=== PATIENT | female | born 1960 | race Caucasian/White ===

== ENCOUNTER → 2019-06-26 | Outpatient (CLI) | payer OTHER ==
--- NOTE | 2019-06-26 18:40 | REP ---
Right wrist series: Four views. History: Pain the right wrist. History of previous fracture. No comparison radiographs. Findings: There is a transversely oriented radial styloid nonunited fracture with sclerotic margins. This extends the intra-articular margin. This is old or subacute in appearance. There is a dorsal triquetral chip fracture visible on the lateral radiograph which also has a well corticated appearance and may be old or subacute. There is osteoarthritic narrowing and sclerosis and spur formation in the navicular multangular articulation. There is mild spurring at the first metacarpal carpal joint and at the IP joint of the thumb. Impression: Nonunited nondisplaced but intra-articular radial styloid fracture, chronic in appearance. Dorsal triquetral chip fracture also appears well corticated and may be old. There is osteoarthritic changes. No acute fracture is seen. Electronically Signed by Norberto Morin MD 06/26/2019 06:32 P
== END ==
LOC: EDBD 17:15 → M WUC 17:15
PROVIDERS: ATTEND Physician Assistant
DX: M84.433A Pathological fracture, right radius, initial encounter for fracture (principal); M25.731 Osteophyte, right wrist

== ENCOUNTER → 2019-07-14 | Outpatient (CLI) | payer OTHER ==
--- NOTE | 2019-07-14 14:44 | REP ---
CT RIGHT WRIST: CT right wrist performed in the axial plane. Sagittal and coronal reconstruction images are performed. There is an intra-articular fracture of the distal radius laterally in the region of the radial styloid, which appears old. There is partial healing and bony bridging but there is a persistent lucency along portions of the fracture line indicating incomplete healing and either partial nonunion or partial fibrous union. There also appears to be an old avulsion fracture of the dorsal triquetrum. There is moderate narrowing with subchondral sclerosis and mild spurring at the joint between the scaphoid and trapezium as well as between the trapezium and trapezoid bones. There is moderate narrowing between the triquetrum and pisiform with mild subchondral sclerosis. Several scattered tiny subchondral cysts are seen in the carpal bones. There are also a couple in the distal end of the radius. Surrounding soft tissue structures are unremarkable. Electronically Signed by Robin Edward MD 07/14/2019 04:35 P
== END ==
LOC: M RAD 13:07
PROVIDERS: ATTEND Physician Assistant
DX: S52.514 Nondisplaced fracture of right radial styloid process (principal); M85.661 Other cyst of bone, right lower leg; Y92.9 Unspecified place or not applicable; X58.XXXD Exposure to other specified factors, subsequent encounter

== ENCOUNTER → 2021-06-09 | Outpatient (CLI) | payer OTHER ==
[~2021-06-09] MED LIST: CALC600T57 PO; DULO1CAP6 PO; FISH1000 PO; LISI20TA35 PO; METO1TAB7 PO; PANT40TA29 PO; POLY510P14 PO; VITMTA PO
== END ==
LOC: M RAD 15:04
PROVIDERS: ATTEND Internal Medicine Gastroenterology
DX: D48.1 Neoplasm of uncertain behavior of connective and other soft tissue (principal)

== ENCOUNTER → 2021-06-17 | Outpatient (REF) | payer OTHER | LOC: M LAB REF 15:01 | PROVIDERS: ATTEND Otolaryngology | DX: R22.1 Localized swelling, mass and lump, neck (principal) ==

== ENCOUNTER → 2021-08-02 | Outpatient (CLI) | payer OTHER ==
[~2021-08-02] MED LIST changes: -CALC600T57 PO; -DULO1CAP6 PO; -FISH1000 PO; -POLY510P14 PO; -VITMTA PO
== END ==
LOC: M LABSMTC 11:02
PROVIDERS: ATTEND Anesthesiology
DX: Z20.828 Contact with and (suspected) exposure to other viral communicable diseases (principal); Z11.59 Encounter for screening for other viral diseases

== ENCOUNTER 2021-08-07 11:46 | Day surgery (SDC) | payer OTHER ==
[~2021-08-07] VITALS: Ht 175.3 cm; Wt 86.2 kg
[~2021-08-07 11:46] MED LIST changes: +LIDOCAINE 2% 100MG/5ML SDV (FOR ANES.) As Ordered ONE; +NS 1,000 ML IV ONE; +fentaNYL 100 MCG/2 ML INJECTION (J3010) As Ordered ONE; +propofoL 500 MG/50 ML VIAL As Ordered ONE
[2021-08-07] MEDS ORDERED: ePHEDrine SULFATE 25 MG/5 ML(5MG/ML) SYRINGE As Ordered ONE (13:12)
--- NOTE | 2021-08-07 13:35 | ROOR ---
Patient Name: Dora Leger Procedure Date: 08/07/2021 12:44 PM Date of : 1960 Age: 61 Room: [facility] Gender: Female Note Status: Finalized Procedure: Upper GI endoscopy Indications: Epigastric abdominal pain, Nausea Providers: Chas Diaz MD Referring MD: Carol Ann Mccall NP Requesting Provider: Medicines: Monitored Anesthesia Care Complications: No immediate complications. Procedure: Pre-Anesthesia Assessment: - Prior to the procedure, a History and Physical was performed, and patient medications and allergies were reviewed. The patient is competent. The risks and benefits of the procedure and the sedation options and risks were discussed with the patient. All questions were answered and informed consent was obtained. Patient identification and proposed procedure were verified by the physician, the nurse and the anesthesiologist in the procedure room. Mental Status Examination: alert and oriented. Airway Examination: normal oropharyngeal airway and neck mobility. Respiratory Examination: clear to auscultation. CV Examination: normal. Prophylactic Antibiotics: The patient does not require prophylactic antibiotics. Prior Anticoagulants: The patient has taken no previous anticoagulant or antiplatelet agents. ASA Grade Assessment: II - A patient with mild systemic disease. After reviewing the risks and benefits, the patient was deemed in satisfactory condition to undergo the procedure. The anesthesia plan was to use monitored anesthesia care (MAC). Immediately prior to administration of medications, the patient was re-assessed for adequacy to receive sedatives. The heart rate, respiratory rate, oxygen saturations, blood pressure, adequacy of pulmonary ventilation, and response to care were monitored throughout the procedure. The physical status of the patient was re-assessed after the procedure. The Endoscope was introduced through the mouth, and advanced to the second part of duodenum. The upper GI endoscopy was accomplished without difficulty. The patient tolerated the procedure well. Findings: Two tongues of salmon-colored mucosa were present from 39 to 41 cm. No other visible abnormalities were present. The maximum longitudinal extent of these esophageal mucosal changes was 3 cm in length. Biopsies were taken with a cold forceps for histology. Verification of patient identification for the specimen was done by the physician and nurse using the patient's name, date and medical record number. Estimated blood loss was minimal. Scattered mild inflammation characterized by erythema and granularity was found in the gastric antrum. Biopsies were taken with a cold forceps for histology. Biopsies were taken with a cold forceps for Helicobacter pylori testing. The duodenal bulb and second portion of the duodenum were normal. Impression: - [place]-colored mucosa suspicious for short-segment Collier's esophagus. Biopsied. - Gastritis. Biopsied. - Normal duodenal bulb and second portion of the duodenum. Recommendation: - Patient has a contact number available for emergencies. The signs and symptoms of potential delayed complications were discussed with the patient. Return to normal activities tomorrow. Written discharge instructions were provided to the patient. - High fiber diet. - Continue present medications. - Await pathology results. - Follow an antireflux regimen. - Use Prilosec (omeprazole) 40 mg PO Daily - to be taken knot cutter on empty stomach for 3 months. - Repeat upper endoscopy in 3 years for surveillance based on pathology results. - Telephone GI clinic for pathology results in 2 weeks. - Return to GI clinic if persistent symptoms or new symptoms. - Return to primary care physician. Procedure Code(s): --- Professional --- 08141, Esophagogastroduodenoscopy, flexible, transoral; with biopsy, single or multiple Diagnosis Code(s): --- Professional --- K22.8, Other specified diseases of esophagus K29.70, Gastritis, unspecified, without bleeding R10.13, Epigastric pain R11.0, Nausea CPT copyright 2019 [employer]. All rights reserved. The codes documented in this report are preliminary and upon industrial relations officer review may be revised to meet current compliance requirements. Chas Diaz MD Chas Diaz MD 08/07/2021 1:34:49 PM Electronically signed by Chas Diaz MD Number of Addenda: 0 Note Initiated On: 08/07/2021 12:44 PM Estimated Blood Loss: Estimated blood loss was minimal.
--- NOTE | 2021-08-07 13:40 | ROOR ---
Patient Name: Dora Leger Procedure Date: 08/07/2021 12:45 PM Date of : 1960 Age: 61 Room: [facility] Gender: Female Note Status: Finalized Procedure: Colonoscopy Indications: Screening for colorectal malignant neoplasm Providers: Chas Diaz MD Referring MD: Carol Ann Mccall NP Requesting Provider: Medicines: Monitored Anesthesia Care Complications: No immediate complications. Procedure: Pre-Anesthesia Assessment: - Prior to the procedure, a History and Physical was performed, and patient medications and allergies were reviewed. The patient is competent. The risks and benefits of the procedure and the sedation options and risks were discussed with the patient. All questions were answered and informed consent was obtained. Patient identification and proposed procedure were verified by the physician, the nurse and the anesthesiologist in the procedure room. Mental Status Examination: alert and oriented. Airway Examination: normal oropharyngeal airway and neck mobility. Respiratory Examination: clear to auscultation. CV Examination: normal. Prophylactic Antibiotics: The patient does not require prophylactic antibiotics. Prior Anticoagulants: The patient has taken no previous anticoagulant or antiplatelet agents. ASA Grade Assessment: II - A patient with mild systemic disease. After reviewing the risks and benefits, the patient was deemed in satisfactory condition to undergo the procedure. The anesthesia plan was to use monitored anesthesia care (MAC). Immediately prior to administration of medications, the patient was re-assessed for adequacy to receive sedatives. The heart rate, respiratory rate, oxygen saturations, blood pressure, adequacy of pulmonary ventilation, and response to care were monitored throughout the procedure. The physical status of the patient was re-assessed after the procedure. The Colonoscope was introduced through the anus and advanced to the terminal ileum, with identification of the appendiceal orifice and IC valve. The colonoscopy was technically difficult and complex due to a tortuous colon. Successful completion of the procedure was aided by applying abdominal pressure. The patient tolerated the procedure well. The quality of the bowel preparation was good. The terminal ileum, ileocecal valve, appendiceal orifice, and rectum were photographed. Scope insertion time was 2 minutes. Scope withdrawal time was 10 minutes. The total duration of the procedure was 12 minutes. Findings: The perianal and digital rectal examinations were normal. The terminal ileum appeared normal. The colon (entire examined portion) was significantly tortuous. Advancing the scope required using manual pressure. Normal mucosa was found in the entire colon. Non-bleeding external and internal hemorrhoids were found during retroflexion. The hemorrhoids were small. Impression: - The examined portion of the ileum was normal. - Tortuous colon. - Normal mucosa in the entire examined colon. - Non-bleeding external and internal hemorrhoids. - No specimens collected. Recommendation: - Patient has a contact number available for emergencies. The signs and symptoms of potential delayed complications were discussed with the patient. Return to normal activities tomorrow. Written discharge instructions were provided to the patient. - High fiber diet. - Continue present medications. - Await pathology results. - Repeat colonoscopy in 10 years for screening purposes. - Return to primary care physician. Procedure Code(s): --- Professional --- 59123, Colonoscopy, flexible; diagnostic, including collection of specimen(s) by brushing or washing, when performed (separate procedure) Diagnosis Code(s): --- Professional --- Z12.11, Encounter for screening for malignant neoplasm of colon K64.8, Other hemorrhoids Q43.8, Other specified congenital malformations of intestine CPT copyright 2019 [employer]. All rights reserved. The codes documented in this report are preliminary and upon estimator printing review may be revised to meet current compliance requirements. Chas Diaz MD Chas Diaz MD 08/07/2021 1:39:35 PM Electronically signed by Chas Diaz MD Number of Addenda: 0 Note Initiated On: 08/07/2021 12:45 PM Estimated Blood Loss: Estimated blood loss was minimal.
[2021-08-07 13:59] VITALS: BP 130/76
[2021-08-11] MEDS ORDERED: DULO1CAP6 PO (14:49)
[2021-08-11] MEDS ORDERED: FISH1000 PO (14:49)
[2021-08-11] MEDS ORDERED: VITMTA PO (14:49)
[2021-08-11] MEDS ORDERED: POLY510P14 PO (14:49)
[2021-08-11] MEDS ORDERED: CALC600T57 PO (14:49)
== END 2021-08-07 14:00 | disposition home or self-care (01) ==
LOC: M OPP 11:46
PROVIDERS: ATTEND Internal Medicine Gastroenterology
DX: Z12.11 Encounter for screening for malignant neoplasm of colon (principal); Q43.8 Other specified congenital malformations of intestine; K64.8 Other hemorrhoids; K22.8 Other specified diseases of esophagus; K29.70 Gastritis, unspecified, without bleeding; R10.13 Epigastric pain; R11.0 Nausea; Z79.899 Other long term (current) drug therapy
CPT/HCPCS: 43239; 45378; 88305; J3010

== ENCOUNTER → 2021-08-15 | Outpatient (CLI) | payer OTHER ==
[~2021-08-15] MED LIST changes: +CALC600T57 PO; +DULO1CAP6 PO; +FISH1000 PO; -LIDOCAINE 2% 100MG/5ML SDV (FOR ANES.) As Ordered ONE; -NS 1,000 ML IV ONE; +POLY510P14 PO; +VITMTA PO; -fentaNYL 100 MCG/2 ML INJECTION (J3010) As Ordered ONE; -propofoL 500 MG/50 ML VIAL As Ordered ONE
--- NOTE | 2021-08-15 14:54 | REPVR ---
PROCEDURE INFORMATION: Exam: CT Neck Without Contrast Exam date and time: 08/15/2021 2:12 PM Age: 61 years old Clinical indication: Mass, lump, or swelling in neck; Right; Additional info: Swelling/mass/lump in neck TECHNIQUE: Imaging protocol: Computed tomography images of the neck without contrast. Radiation optimization: All CT scans at this facility use at least one of these dose optimization techniques: automated exposure control; mA and/or kV adjustment per patient size (includes targeted exams where dose is matched to clinical indication); or iterative reconstruction. COMPARISON: Thyroid, ST head+neck US 06/09/2021 3:14 PM FINDINGS: Nasopharynx: Unremarkable. Dental: Artifact from patient's dental hardware. No significant dental disease identified. Oropharynx: Unremarkable. No significant tonsillar enlargement. Hypopharynx: Unremarkable. Larynx: Unremarkable. Normal epiglottis. Retropharyngeal space: Unremarkable. Submandibular/Parotid glands: Normal. Glands are normal in size. Thyroid: Diminutive thyroid. Lymph nodes: No confluent lymphadenopathy. Trachea: Visualized trachea is unremarkable. Lungs: The included lung apices are clear. Bones/joints: Age-appropriate degenerative changes in the spine without acute fracture. Soft tissues: Just caudad to the metallic marker in the right neck is a low-density mass, corresponding to the ultrasound findings, which is located along the anterolateral aspect of the sternocleidomastoid muscle and just deep to the fascial air. This measures 16 x 11 x 18 mm. Other findings: Limited noncontrast exam. IMPRESSION: 1. No confluent lymphadenopathy. 2. Low-density mass corresponding to the metallic marker in the right neck. This is nonspecific. One might consider ultrasound-guided tissue sampling. Electronically signed by: Richi Bonilla On 08/15/2021 14:53:41 PM
== END ==
LOC: M RAD 14:02
PROVIDERS: ATTEND Otolaryngology
DX: R22.1 Localized swelling, mass and lump, neck (principal)

== ENCOUNTER → 2021-08-16 | Outpatient (CLI) | payer OTHER | LOC: M LABSMTC 11:04 | PROVIDERS: ATTEND Anesthesiology | DX: Z01.812 Encounter for preprocedural laboratory examination (principal); Z11.52 Encounter for screening for COVID-19 ==

== ENCOUNTER 2021-08-21 08:51 | Day surgery (SDC) | payer OTHER ==
[~2021-08-21] VITALS: Ht 175.3 cm; Wt 83.9 kg
[~2021-08-21 08:51] MED LIST changes: +LIDOCAINE 1% MDV 20ML VIAL SQ PRN; +LR 1,000 ML IV ONE
--- OUTSIDE RECORDS SUMMARY | 2021-08-21 08:56 | CCD | Continuity of Care Document ---
Author Author Dora BERRISO RPA Organization Unknown Address [address] [facility], [address] [place] [address] Phone [phone] Care Team Providers Care Manager Web Application Name Role Phone Carol Ann Mccall AUTM [phone] Augie Angulo MD AUTM Pauline Berrios AUTM Problems Active Problems Provider Date Essential hypertension PHOEBE Novoa Onset: Social History Type Date Description Comments Sex Unknown ETOH Use 1-2 A Week Tobacco Use Start: Unknown Non Smoker Allergies, Adverse Reactions, Alerts Description No Known Drug Allergies Medications Active Medications SIG Qnty Indications Ordering Provide r Date Pantoprazole Sodium 40mg Tablets D R take 1 tablet by mouth daily. 30tabs R10.13 Boom Villalba MD 05/27/20 21 Miralax 17GM/Scoop Powder take 17 grams by mouth once daily. 510units K59.00 Boom Villalba MD 05/27/2021 Suprep Bowel Prep Kit 17.5-3.13-1.6GM/177ML Solution take per doctor's bowel prep instructions. 354ml Z12.1 1 Boom Villalba MD 05/27/[address] take 4 tabs by mouth prior to procedure per instructions. 4tabs Z12.11 Boom Villalba MD 05/27/2021 Metoprolol Succinate ER 50mg Tablets ER 24HR Daily Unknown Duloxetine HCL 60mg Caps DR Part 1 by mouth every day Unknown Lisinopril-Hydrochlorothiazide 20-12.5mg Tablets 1 by mouth every day Unknown 000 [place] 3 2150MG 2 Daily Unknown Calcium 600+D [id number] Table ts 2 daily Unknown Multivitamin Tablets 1 by mouth every day Unknown Diclofenac Sodium 75mg Tablets DR bray Unknown Milk Of Magnesia 1200mg/15ML Suspe nsion 1 big sip daily Unknown Immunizations Description No Information Available Vital Signs Date Vital Result Comment 06/17/2021 11:31am Height 69 inches 5'9" Weight 190.00 lb BMI (Body Mass Index) 28.1 kg/m2 [place] Body Weight 145 lb Weight 86.184 kg BSA (Body Surface Area) 2.02 m2 05/27/2021 10:33am BP Systolic 124 mmHg BP Diastolic 82 mmHg Height 69 inches 5'9" Weight 199.00 lb BMI (Body Mass Index) 29.4 kg/m2 [place] Body Weight 145 lb Weight 90.266 kg BSA (Body Surface Area) 2.06 m2 Results Test Acquired Date Facility Test Result H/L Range Note Laboratory test finding 06/17/2021 [facility] Main [facility] [address] [place] [id number] [phone] Non Order Planner/Cytology Req For Servi <pending> Procedures Date Code Description Status 05/27/2021 12801 Office/Outpatient New Moderate M DM 45-59 Minutes Completed Medical Devices Description No Information Available Encounters Type Date Location Provider Dx Diagnosis Office Visit 05/27/2021 10:15a [facility] Pra [facility]ice Paulinekortney Berrios RPA-C R10.13 Epigastric pain R11.0 Nausea K59.00 Constipation, unspecified 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 Z12.11 Encounter for screening for malignant neoplasm of colon Assessments Date Code Description Provider 06/17/2021 R22.1 Localized swelling, mass and lum p, neck Romeo Duke MD 05/27/2021 R10.13 Epigastric pain Pauline Landon schaefer RPA-C 05/27/2021 R11.0 Nausea MALI BoschC 05/27/2021 K59.00 Constipation, unspecified Zeina DiazSAMUEL chapa-C 05/27/2021 D48.1 Neoplasm of uncertai n behavior of connective and other soft tissue Paulinekortney KelleySAMUEL schaefer-C 05/27/2021 Z12.11 Encounter for screening for bentley gnant neoplasm of colon Pauline A SAMUEL Berrios-C Plan of Treatment No Information Available Functional Status Description No Information Available Mental Status Description No Information Available Referrals Refer to Dr Reason for Referral Status Appt Date Kev, Augie Aguila MD 61 y/o female with palpable nodule on right side of neck. Ultrasound showed two nodules and biposy was recommended. Please evaluate and treat BOBBY. Thank you. Scheduled 06/17/[address] [place] [address] [phone] Chas Diaz M.D. EPIGASTRIC PAIN Scheduled [facility] [address] [id number] [phone]
--- OUTSIDE RECORDS SUMMARY | 2021-08-21 08:56 | CCD | Continuity of Care Document ---
Author Author Dora DUKE MD Organization Unknown Address [address] [facility] [address] [place] [address] Phone [phone] Care Team Providers Care Senior Net Developer Architect Name Role Phone Carol Ann Mccall AUTM [phone] Augie Angulo MD AUTM Pauline Carrasquillo AUTM Problems Active Problems Provider Date Essential [...] daily. 30tabs R10.13 Boom Villalba MD 05/27/20 Miralax 17GM/Scoop Powder take 17 grams by [...] Tablets 1 by mouth every day Unknown /0 000 Pease 3 2150MG 2 Daily Unknown Calcium 600+D [id number]-[id number] Table ts 2 daily Unknown Multivitamin Tablets 1 by mouth every day Unknown Diclofenac Sodium 75mg Tablets DR bray Unknown Milk Of Magnesia 1200mg/15ML Suspe nsion 1 big sip daily Unknown Immunizations Description No Information Available Vital Signs Date Vital Result Comment 06/17/2021 11:31am Height 69 inches 5'9" Weight 190.00 lb BMI (Body Mass Index) 28.1 kg/m2 [place] Body Weight 145 lb Weight 86.184 kg BSA (Body Surface Area) 2.02 m2 05/27/2021 10:33am BP Systolic 124 mmHg BP Diastolic 82 mmHg Height 69 inches 5'9" Weight 199.00 lb BMI (Body Mass Index) 29.4 kg/m2 [place] Body Weight 145 lb Weight 90.266 kg BSA (Body Surface Area) 2.06 m2 Results Test Acquired Date Facility Test Result H/L Range Note Laboratory test finding 06/17/2021 [facility] Main Lab [address] [place] [address] [phone] Non Vp Director Of Finance/Cytology Req For Servi <pending> Procedures Date Code Description Status 05/27/2021 62667 Office/Outpatient New Moderate M DM 45-59 Minutes Completed Medical Devices Description No Information Available Encounters Type Date Location Provider Dx Diagnosis Office Visit 05/27/2021 10:15a [facility] Gastroenterology Pra ctice Pauline A SAMUEL Carrasquillo-C R10.13 Epigastric pain R11.0 Nausea K59.00 Constipation, unspecified 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 Z12.11 Encounter for screening for malignant neoplasm of colon Assessments Date Code Description Provider 06/17/2021 R22.1 Localized swelling, mass and lum p, neck Romeo Duke MD 05/27/2021 R10.13 Epigastric pain Pauline A Warren schaefer RPA-C 05/27/2021 R11.0 Nausea Pauline A Warren schaefer RPA-C 05/27/2021 K59.00 Constipation, unspecified Meliss a A CharleMALI schaeferC 05/27/2021 D48.1 Neoplasm of uncertai n behavior of connective and other soft tissue Pauline KelleyMALI schaeferC 05/27/2021 Z12.11 Encounter for screening for bentley gnant neoplasm of colon Pauline A PHOEBE Carrasquillo Plan of Treatment No Information Available Functional Status Description No Information Available Mental Status Description No Information Available Referrals Refer to Dr Reason for Referral Status Appt Date Kev, Augie Aguila MD 61 y/o female with palpable nodule on right side of neck. Ultrasound showed two nodules and biposy was recommended. Please evaluate and treat BOBBY. Thank you. Scheduled 06/17/[address] [id number] [phone] Chas Diaz M.D. EPIGASTRIC PAIN Scheduled [facility] [address] [facility] [address] [place], [place] [id number] [phone]
--- OUTSIDE RECORDS SUMMARY | 2021-08-21 08:56 | CCD | Continuity of Care Document ---
Author Dora Villeda Organization Unknown Address [address] [facility], [address] [place] [address] Phone [phone] Care Team Providers Care City Plant Supervisor Name Role Phone Carol Ann Mccall AUTM [phone] Augie Angulo MD AUTM Pauline Carrasquillo AUTM Problems Active Problems Provider Date Essential hypertension PHOEBE Novoa Onset: Social History Type Date Description Comments Sex Unknown ETOH Use 1-2 A Week Tobacco Use Start: Unknown Non Smoker Allergies, Adverse Reactions, Alerts Description No Known Drug Allergies Medications Active Medications SIG Qnty Indications Ordering Provide r Date Miralax 17GM/Scoop Powder use as instructed by doctor for bowel prep 510gm Boom Villalba MD 07/10/2021 Pantoprazole Sodium 40mg Tablets D R take 1 tablet by mouth daily. 30tabs R10.13 Boom Villalba MD 05/27/20 21 Miralax 17GM/Scoop Powder take 17 grams by mouth once daily. 510units K59.00 Boom Villalba MD 05/27/[address] take 4 tabs by mouth prior to procedure per instructions. 4tabs Z12.11 Boom Villalba MD 05/27/2021 Metoprolol Succinate ER 50mg Tablets ER 24HR Daily Unknown Duloxetine HCL 60mg Caps DR Part 1 by mouth every day Unknown Lisinopril-Hydrochlorothiazide 20-12.5mg Tablets 1 by mouth every day Unknown 000 [place] 3 2150MG 2 Daily Unknown Calcium 600+D 772-846qy-Lvsg Table ts 2 daily Unknown Multivitamin Tablets 1 by mouth every day Unknown Diclofenac Sodium 75mg Tablets DR bray Unknown Milk Of Magnesia 1200mg/15ML Suspe nsion 1 big sip daily Unknown History Medications Suprep Bowel Prep Kit 17.5-3.13-1.6GM/177ML Solution take per doctor's bowel prep instructions. 354ml Z12.1 1 Boom Villalba MD 05/27/2021 - 07/10/2021 Immunizations Description No Information Available Vital Signs Date Vital Result Comment 07/21/2021 10:18am Height 69 inches 5'9" Weight 194.00 lb BMI (Body Mass Index) 28.6 kg/m2 [place] Body Weight 145 lb Weight 87.998 kg BSA (Body Surface Area) 2.04 m2 06/17/2021 11:31am Height 69 inches 5'9" Weight 190.00 lb BMI (Body Mass Index) 28.1 kg/m2 [place] Body Weight 145 lb Weight 86.184 kg BSA (Body Surface Area) 2.02 m2 Results Test Acquired Date Facility Test Result H/L Range Note Laboratory test finding 08/07/2021 [facility] [address] [place], [place] [id number] [phone] Pathology Request For Service (SEE NOTE) 1 Laboratory test finding 06/17/2021 [facility] [address] [place], [place] [address] [phone] Non Building Maintenance Repairer/Cytology Req For Servi (SEE NOTE) 2 1 FINAL DIAGNOSIS A - Gastric biopsy: Gastric mucosa with mild reactive changes. No significant inflammatory activity or evidence for H. pylori is noted. B - Lower esophageal biopsy: Squamocolumnar junction mucosa with mild acute and chronic inflammation. No intestinal metaplasia is identified. 08/11/2021 - 1107 CLINICAL DIAGNOSIS Epigastric pain, nausea, screening, gastritis and esophagitis 08/08/2021 - 1249 GROSS DIAGNOSIS A - Received in formalin labeled "gastric biopsy" is a 0.2 x 0.2 x 0.1 cm. aggregate of two mucosal fragments. All in one. B - Received in formalin labeled "lower esophageal biopsy" is a 0.3 x 0.2 x 0.2 cm. portion of mucosa. All in one. - 08/08/2021 - 1249 Signed Collins Hwang MD 08/11/2021 1218 2 SPECIMEN: FNA Rig ht neck mass Slides and Cytolyt (clear) received SPECIMEN ADEQUACY: Satisfactory for evaluation CATEGORIZATION: No Malignancy identified DESCRIPTIONS: Specimen consists mainly of scattered neutrophils and lymphocytes. COMMENTS: 06/18/2021 - 0842 Signed ALEIDA CRUZ(ASCP) 06/18/2021 0728 (Prelim) Signed HUGO MONCADA MD 06/18/2021 0842 Procedures Date Code Description Status 08/07/2021 28795 Colonoscopy Flexible Proximal To Splenic Flexure Diagnostic W/Or Completed 08/07/2021 00109 Endoscopy Upper GI Biopsy Comple jose e 07/21/2021 27501 Office/Outpatient Established SF MDM 10-19 Min Completed 06/17/2021 17861 Office/Outpatient New Low MDM 30 -44 Minutes Completed 06/17/2021 02134 Laryngoscopy Flexible Fiberoptic Diagnostic Completed 06/17/2021 43877 Fine Needle Aspiration Biopsy In lcd Ultrasound Guidance Completed 05/27/2021 01338 Office/Outpatient New Moderate M DM 45-59 Minutes Completed Medical Devices Description No Information Available Encounters Type Date Location Provider Dx Diagnosis Office Visit 07/21/2021 10:30a [facility] Romeo Duke MD R22.1 Localized swelling, mass and lump, neck Office Visit 06/17/2021 11:30a [facility] Romeo Duke MD R22.1 Localized swelling, mass and lump, neck Office Visit 05/27/2021 10:15a [facility] [place] Pauline Carrasquillo, RPA-C R10.13 Epigastric pain R11.0 Nausea K59.00 Constipation, unspecified 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 08/07/2021 K64.8 Other hemorrhoids Chas rojas M.D. 08/07/2021 R10.13 Epigastric pain Chas Arizmendi ala, M.D. 08/07/2021 R11.0 Nausea Chas Arizmendi ala, M.D. 08/07/2021 K22.8 Other specified diseases of esop hagus Chas Diaz M.D. 08/07/2021 K29.70 Gastritis, unspecified, without bleeding Chas Diaz M.D. 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 MALI NovoaC 05/27/2021 Z12.11 Encounter for screening for bentley gnant neoplasm of colon PHOEBE Novoa Plan of Treatment Future Appointment(s):* 08/20/2021 3:15 pm - PHOEBE Novoa at [facility] * 08/21/2021 11:45 am - Romeo Duke MD at [facility] 07/21/2021 - Romeo Duke MD* R22.1 Localized swelling, mass and lump, neck* New Xrays:* CT Neck Soft Tissue W/O Contrast, Ordered: 07/21/21 Functional Status Description No Information Available Mental Status Description No Information Available Referrals Refer to Dr Reason for Referral Status Appt Date Augie Angluo MD 61 y/o female with palpable nodule on right side of neck. Ultrasound showed two nodules and biposy was recommended. Please evaluate and treat BOBBY. Thank you. Closed 06/17/[address] [place] [address] [phone] Chas Diaz M.D. EPIGASTRIC PAIN Scheduled [facility] [address], [address] [place] [address] [phone]
--- OUTSIDE RECORDS SUMMARY | 2021-08-21 08:56 | CCD | Continuity of Care Document ---
Author Author Dora DUKE MD Organization Unknown Address [address] [facility] [address] [place] [address] Phone [phone] Care Team Providers Care Auto Haulaway Driver Name Role Phone Carol Ann Mccall AUTM [phone] Augie Angulo MD AUTM Pauline Carrasquillo AUTM [phone] Problems Active Problems Provider Date Essential hypertension [...] by mouth every day Unknown /0 000 [place] 3 2150MG 2 Daily Unknown Calcium 600+D 348-268xs-Ykaw Table ts 2 daily Unknown Multivitamin Tablets 1 by mouth every day Unknown Diclofenac Sodium 75mg Tablets DR bray Unknown Milk Of Magnesia 1200mg/15ML Suspe nsion 1 big sip daily Unknown Immunizations Description No Information Available Vital Signs Date Vital Result Comment 06/17/2021 11:31am Height 69 inches 5'9" Weight 190.00 lb BMI (Body Mass Index) 28.1 kg/m2 [place] Body Weight 145 lb Weight 86.184 kg BSA (Body Surface Area) 2.02 m2 05/27/2021 10:33am BP Systolic 124 mmHg BP Diastolic 82 mmHg Height 69 inches 5'9" Weight 199.00 lb BMI (Body Mass Index) 29.4 kg/m2 [place] Body Weight 145 lb Weight 90.266 kg BSA (Body Surface Area) 2.06 m2 Results Test Acquired Date Facility Test Result H/L Range Note Laboratory test finding 06/17/2021 [facility] Main Lab [address] [place] [address] [phone] Non Associate Embalmer/Funeral Director/Cytology Req For Servi <pending> Procedures Date Code Description Status 05/27/2021 88370 Office/Outpatient New Moderate M DM 45-59 Minutes Completed Medical Devices Description No Information Available Encounters Type Date Location Provider Dx Diagnosis Office Visit 05/27/2021 10:15a [facility] Pra [place]ice Pauline A SAMUEL Carrasquillo-C [...] treat BOBBY. Thank you. Scheduled 06/17/[address] [id number] [phone] Chas Diaz M.D. EPIGASTRIC PAIN Scheduled [facility] [address] [facility] [address] [place], [place] [id number] [phone]
--- OUTSIDE RECORDS SUMMARY | 2021-08-21 08:56 | CCD | Continuity of Care Document ---
Author Author Dora BERRIOS RPA Organization Unknown Address [address] [place] [address], [address] [place] [address] Phone [phone] Care Team Providers Care Dean Of Education Name Role Phone CalCarol AnnM [phone] Problems Active Problems Provider Date Essential hypertension [...] 354ml Z12.1 1 Boom Villalba MD 05/27/2021 Metoprolol Succinate ER 50mg Tablets ER 24HR Daily Unknown Duloxetine HCL 60mg Caps DR [address] 1 by mouth every day Unknown Lisinopril-Hydrochlorothiazide 20-12.5mg Tablets 1 by mouth every day Unknown 000 [place] 3 2150MG 2 Daily Unknown Calcium 600+D 966-086tv-Ednp Table ts 2 daily Unknown Multivitamin Tablets 1 by mouth every day Unknown Diclofenac Sodium 75mg Tablets prn Unknown Milk Of Magnesia 1200mg/15ML Suspe nsion 1 big sip daily Unknown Immunizations Description No Information Available Vital Signs Date Vital Result Comment 05/27/2021 10:33am BP Systolic 124 mmHg BP Diastolic 82 mmHg Height 69 inches 5'9" Weight 199.00 lb BMI (Body Mass Index) 29.4 kg/m2 [place] Body Weight 145 lb Weight 90.266 kg BSA (Body Surface Area) 2.06 m2 Results Description No Information Available Procedures Description No Information Available Medical Devices Description No Information Available Encounters Description No Information Available Assessments Date Code Description Provider 05/27/2021 R10.13 Epigastric pain Pauline colemanPHOEBE chapa 05/27/2021 R11.0 Nausea Pauline colemanPHOEBE chapa 05/27/2021 K59.00 Constipation, unspecified Meliss gillian KelleyPHOEBE schaefer 05/27/2021 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 Reviewed risks and benefits of the procedures, as well as other options, with the patient. Prep for this procedure was discussed with patient, including risks and side effects associated with the prep. Patient verbalized understanding of all of the above and is in agreement to proceed. Patient will seek medical attention for any acute changes. Will monitor. Will need MOM for pre-prep * Follow up:* 2 weeks after procedures, sooner if needed. Functional Status Description No Information Available Mental Status Description No Information Available Referrals Refer to Reason for Referral Status Appt Date Chas Diaz M.D. EPIGASTRIC PAIN Scheduled [facility] [address] [facility], [address] [place] [address] [phone]
--- OUTSIDE RECORDS SUMMARY | 2021-08-21 08:56 | CCD | Continuity of Care Document ---
Author Author Dora DUKE MD Organization Unknown Address [address] [facility] [address] [place] [address] Phone [phone] Care Team Providers Care Liner Man Name Role Phone Carol Ann Mccall AUTM [phone] Augie Angulo MD AUTM [phone] Pauline Carrasquillo AUTM Problems Active Problems Provider [...] by mouth every day Unknown /0 000 [place] 3 2150MG 2 Daily Unknown Calcium 600+D 719-634is-Ntju Table ts 2 daily Unknown Multivitamin Tablets [...] lb BMI (Body Mass Index) 28.6 kg/m2 [place] Body Weight 145 lb Weight 87.998 kg BSA (Body Surface Area) 2.04 m2 06/17/2021 11:31am Height 69 inches 5'9" Weight 190.00 lb BMI (Body Mass Index) 28.1 kg/m2 [place] Body Weight 145 lb Weight 86.184 kg BSA (Body Surface Area) 2.02 m2 Results Test Acquired Date Facility Test Result H/L Range Note Laboratory test finding 06/17/2021 [facility] Main Lab [address] [place], [place] [address] [phone] Non Professor Of Family Medicine/Cytology Req For Servi (SEE NOTE) 1 1 SPECIMEN: FNA Rig ht neck mass Slides and Cytolyt (clear) received SPECIMEN ADEQUACY: Satisfactory for evaluation CATEGORIZATION: No Malignancy identified DESCRIPTIONS: Specimen consists mainly of scattered neutrophils and lymphocytes. COMMENTS: 06/18/2021 - 841 Signed ALEIDA CRUZ(ASCP) 06/18/2021 0728 (Prelim) Signed HUGO MONCADA MD 06/18/2021 0842 Procedures Date Code Description Status 06/17/2021 68776 Office/Outpatient New Low MDM 30 -44 Minutes Completed 06/17/2021 59363 Laryngoscopy Flexible Fiberoptic Diagnostic Completed 06/17/2021 28755 Fine Needle Aspiration Biopsy In lcd Ultrasound Guidance Completed 05/27/2021 74543 Office/Outpatient New Moderate M DM 45-59 Minutes Completed Medical Devices Description No Information Available Encounters Type Date Location Provider Dx Diagnosis Office Visit 06/17/2021 11:30a [facility] Romeo Duke MD R22.1 Localized swelling, mass and lump, neck Office Visit 05/27/2021 10:15a [facility] ctice Pauline Navarrete Foreign, SAMUEL-C R10.13 Epigastric pain R11.0 Nausea K59.00 Constipation, unspecified 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 Z12.11 Encounter for screening for malignant neoplasm of colon Assessments Date Code Description Provider 06/17/2021 R22.1 Localized swelling, mass and lum p, neck Romeo Duke MD 05/27/2021 R10.13 Epigastric pain Pauline Kelley silvano, SAMUEL-C 05/27/2021 R11.0 Nausea Pauline A Warren schaefer, SAMUEL-C 05/27/2021 K59.00 Constipation, unspecified Meliss gillian Navarrete MALI CarrasquilloC 05/27/2021 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 at [facility] Functional Status Description No Information Available Mental Status Description No Information Available Referrals Refer to Dr Reason for Referral Status Appt Date Augie Angulo MD 61 y/o female with palpable nodule on right side of neck. Ultrasound showed two nodules and biposy was recommended. Please evaluate and treat BOBBY. Thank you. Closed 06/17/[address] [place] [address] [phone] Chas Diaz M.D. EPIGASTRIC PAIN Scheduled [facility] [address] [place] [address] [address] [place] [address] [phone]
--- OUTSIDE RECORDS SUMMARY | 2021-08-21 08:56 | CCD | Continuity of Care Document ---
Author Author Dora DUKE MD Organization Unknown Address [address] [facility] [address] [place] [address] Phone [phone] Care Team Providers Care Correctional Treatment Specialist Name Role Phone Carol Ann Mccall AUTM [phone] Augie Angulo MD AUTM [phone] Pauline Carrasquillo AUTM Problems Active Problems [...] by mouth every day Unknown /0 000 [place] 3 2150MG 2 Daily Unknown Calcium 600+D 884-604gk-Ydqo Table ts 2 daily Unknown Multivitamin Tablets [...] lb BMI (Body Mass Index) 28.6 kg/m2 [place] Body Weight 145 lb Weight 87.998 kg BSA (Body Surface Area) 2.04 m2 06/17/2021 11:31am Height 69 inches 5'9" Weight 190.00 lb BMI (Body Mass Index) 28.1 kg/m2 [place] Body Weight 145 lb Weight 86.184 kg BSA (Body Surface Area) 2.02 m2 Results Test Acquired Date Facility Test Result H/L Range Note Laboratory test finding 06/17/2021 [facility] Main Lab [address] [place], [place] [address] [phone] Non Events Specialist/Cytology Req For Servi (SEE NOTE) 1 1 SPECIMEN: FNA Rig ht neck mass Slides and Cytolyt (clear) received SPECIMEN ADEQUACY: Satisfactory for evaluation CATEGORIZATION: No Malignancy identified DESCRIPTIONS: Specimen consists mainly of scattered neutrophils and lymphocytes. COMMENTS: 06/18/2021 - 0842 Signed ALEIDA CRUZ(ASCP) 06/18/2021 0728 (Prelim) Signed HUGO MONCADA MD 06/18/2021 0842 Procedures Date Code Description Status 07/21/2021 03176 Office/Outpatient Established SF MDM 10-19 Min Completed 06/17/2021 52656 Office/Outpatient New Low MDM 30 -44 Minutes Completed 06/17/2021 17908 Laryngoscopy Flexible Fiberoptic Diagnostic Completed 06/17/2021 42719 Fine Needle Aspiration Biopsy In lcd Ultrasound Guidance Completed 05/27/2021 45454 Office/Outpatient New Moderate M DM 45-59 Minutes Completed Medical Devices Description No Information Available Encounters Type Date Location Provider Dx Diagnosis Office Visit 07/21/2021 10:30a [facility] Romeo Duke MD R22.1 Localized swelling, mass and lump, neck Office Visit 06/17/2021 11:30a [facility] Romeo Duke MD R22.1 Localized swelling, mass and lump, neck Office Visit 05/27/2021 10:15a [facility] Pra ctice Pauline Navarrete Foreign, RPA-C R10.13 Epigastric pain R11.0 Nausea K59.00 Constipation, unspecified 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 Z12.11 Encounter for screening for malignant neoplasm of colon Assessments Date Code Description Provider 07/21/2021 R22.1 Localized swelling, mass and lum p, neck Romeo Duke MD 06/17/2021 R22.1 Localized swelling, mass and lum p, neck Romeo Duke MD 05/27/2021 R10.13 Epigastric pain Pauline Navarrete Warren schaefer, RPA-C 05/27/2021 R11.0 Nausea Pauline A Warern silvano, RPA-C 05/27/2021 K59.00 Constipation, unspecified Meliss a Landon Foreign, RPA-C 05/27/2021 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 at [facility] 07/21/2021 - Romeo Duke MD* R22.1 Localized swelling, mass and lump, neck* New Xrays:* CT Neck Soft Tissue W/O Contrast, Ordered: 07/21/21 Functional Status Description No Information Available Mental Status Description No Information Available Referrals Refer to Reason for Referral Status Appt Date Augie Angulo MD 61 y/o female with palpable nodule on right side of neck. Ultrasound showed two nodules and biposy was recommended. Please evaluate and treat BOBBY. Thank you. Closed 06/17/[address] [place] [address] [phone] Chas Diaz M.D. EPIGASTRIC PAIN Scheduled [facility] [address] [facility] [address] [place] [address] [phone]
--- OUTSIDE RECORDS SUMMARY | 2021-08-21 08:56 | CCD | Continuity of Care Document ---
Author Author Dora DUKE MD Organization Unknown Address [address] [facility] [address] [place] [address] Phone [phone] Care Team Providers Care Valve Fitter Name Role Phone Carol Ann Mccall AUTM [phone] Augie Angulo MD AUTM [phone] Pauline Carrasquillo AUTM Problems Active Problems Provider [...] by mouth every day Unknown /0 000 [place] 3 2150MG 2 Daily Unknown Calcium 600+D 270-872gq-Yehy Table ts 2 daily Unknown Multivitamin Tablets 1 by mouth every day Unknown Diclofenac Sodium 75mg Tablets DR bray Unknown Milk Of Magnesia 1200mg/15ML Suspe nsion 1 big sip daily Unknown Immunizations Description No Information Available Vital Signs Date Vital Result Comment 06/17/2021 11:31am Height 69 inches 5'9" Weight 190.00 lb BMI (Body Mass Index) 28.1 kg/m2 [place] Body Weight 145 lb Weight 86.184 kg BSA (Body Surface Area) 2.02 m2 05/27/2021 10:33am BP Systolic 124 mmHg BP Diastolic 82 mmHg Height 69 inches 5'9" Weight 199.00 lb BMI (Body Mass Index) 29.4 kg/m2 [place] Body Weight 145 lb Weight 90.266 kg BSA (Body Surface Area) 2.06 m2 Results Test Acquired Date Facility Test Result H/L Range Note Laboratory test finding 06/17/2021 [facility] Main Lab [address] [place] [address] [phone] Non Operations Agent/Cytology Req For Servi <pending> Procedures Date Code Description Status 05/27/2021 40333 Office/Outpatient New Moderate M DM 45-59 Minutes Completed Medical Devices Description No Information Available Encounters Type Date Location Provider Dx Diagnosis Office Visit 05/27/2021 10:15a [facility] Gastroenterology Pra ctice Pauline A SAMUEL Carrasquillo-C [...] treat BOBBY. Thank you. Scheduled 06/17/[address] [id number] [phone] Chas Diaz M.D. EPIGASTRIC PAIN Scheduled [facility] [address] [facility] [address] [place], [place] [address] [phone]
--- OUTSIDE RECORDS SUMMARY | 2021-08-21 08:56 | CCD | Continuity of Care Document ---
Author Author Dora DUKE MD Organization Unknown Address [address] [facility] [address] [place] [address] Phone [phone] Care Team Providers Care Space Planner Name Role Phone Carol Ann Mccall AUTM [phone] Augie Angulo MD AUTM Pauline Carrasquillo AUTM [...] by mouth every day Unknown /0 000 [place] 3 2150MG 2 Daily Unknown Calcium 600+D [id number] Table ts 2 daily Unknown Multivitamin Tablets 1 by mouth every day Unknown Diclofenac Sodium 75mg Tablets DR bray Unknown Milk Of Magnesia 1200mg/15ML Suspe nsion 1 big sip daily Unknown Immunizations Description No Information Available Vital Signs Date Vital Result Comment 06/17/2021 11:31am Height 69 inches 5'9" Weight 190.00 lb BMI (Body Mass Index) 28.1 kg/m2 [place] Body Weight 145 lb Weight 86.184 kg BSA (Body Surface Area) 2.02 m2 05/27/2021 10:33am BP Systolic 124 mmHg BP Diastolic 82 mmHg Height 69 inches 5'9" Weight 199.00 lb BMI (Body Mass Index) 29.4 kg/m2 [place] Body Weight 145 lb Weight 90.266 kg BSA (Body Surface Area) 2.06 m2 Results Test Acquired Date Facility Test Result H/L Range Note Laboratory test finding 06/17/2021 [facility] [address] [place] [id number] [phone] Non Tobacco Sieve Operator/Cytology Req For Servi (SEE NOTE) 1 1 SPECIMEN: FNA Rig ht neck mass Slides and Cytolyt (clear) received SPECIMEN ADEQUACY: Satisfactory for evaluation CATEGORIZATION: No Malignancy identified DESCRIPTIONS: Specimen consists mainly of scattered neutrophils and lymphocytes. COMMENTS: 06/18/2021 - 0842 Signed ALEIDA CRUZ(ASCP) 06/18/2021 0728 (Prelim) Signed HUGO MONCADA MD 06/18/2021 0842 Procedures Date Code Description Status 06/17/2021 45275 Office/Outpatient New Low MDM 30 -44 Minutes Completed 06/17/2021 81447 Laryngoscopy Flexible Fiberoptic Diagnostic Completed 06/17/2021 14442 Fine Needle Aspiration Biopsy In lcd Ultrasound Guidance Completed 05/27/2021 61271 Office/Outpatient New Moderate M DM 45-59 Minutes Completed Medical Devices Description No Information Available Encounters Type Date Location Provider Dx Diagnosis Office Visit 06/17/2021 11:30a [facility] Romeo Duke MD R22.1 Localized swelling, mass and lump, neck Office Visit 05/27/2021 10:15a [facility] Pauline Navarrete Foreign, RPA-C R10.13 Epigastric pain R11.0 Nausea K59.00 Constipation, unspecified 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 Z12.11 Encounter for screening for malignant neoplasm of colon Assessments Date Code Description Provider 06/17/2021 R22.1 Localized swelling, mass and lum p, neck Romeo Duke MD 05/27/2021 R10.13 Epigastric pain Pauline schaefer, RPA-C 05/27/2021 R11.0 Nausea Paulinekortney Kelley bosammi, RPA-C 05/27/2021 K59.00 Constipation, unspecified Meliss a Landon Warrenbosammi, RPA-C 05/27/2021 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 at [facility] 06/17/2021 - Romeo Duke MD* R22.1 Localized swelling, mass and lump, neck Functional Status Description No Information Available Mental Status Description No Information Available Referrals Refer to Dr Reason for Referral Status Appt Date Augie Angulo MD 61 y/o female with palpable nodule on right side of neck. Ultrasound showed two nodules and biposy was recommended. Please evaluate and treat BOBBY. Thank you. Closed 06/17/[address] [place] [address] [address] [place] [address] [phone] Chas Diaz M.D. EPIGASTRIC PAIN Scheduled [facility] [address] [facility] [address] [place] [address] [phone]
--- OUTSIDE RECORDS SUMMARY | 2021-08-21 08:57 | CCD ---
Author Author [facility] Organization [facility] Address Unknown Phone Unavailable Care Team Providers Care Academic Dean Name Role Phone Siesta Acres, L Carol Ann CASTING TRUCKER Unavailable Unavailable Siesta Acres, L Carol Ann CASTING TRUCKER Unavailable Unavailable Siesta Acres, L Carol Ann CASTING TRUCKER Unavailable Unavailable Siesta Acres, L Carol Ann CASTING TRUCKER Unavailable Unavailable Cal, L Carol Ann CASTING TRUCKER Unavailable Unavailable Cal, L Carol Ann CASTING TRUCKER Unavailable Unavailable Cal, L Carol Ann CASTING TRUCKER Unavailable Unavailable Siesta Acres, L Carol Ann CASTING TRUCKER Unavailable Unavailable Siesta Acres, L Carol Ann CASTING TRUCKER Unavailable Unavailable Cal, L Carol Ann CASTING TRUCKER Unavailable Unavailable Cal, L Carol Ann CASTING TRUCKER Unavailable Unavailable Cal, L Carol Ann CASTING TRUCKER Unavailable Unavailable Siesta Acres, L Carol Ann CASTING TRUCKER Unavailable Unavailable Cal, L Carol Ann CASTING TRUCKER Unavailable Unavailable Cal, L Carol Ann CASTING TRUCKER Unavailable Unavailable Cal, L Carol Ann CASTING TRUCKER Unavailable Unavailable Cal, L Carol Ann CASTING TRUCKER Unavailable Unavailable Cal, L Carol Ann CASTING TRUCKER Unavailable Unavailable Siesta Acres, L Carol Ann CASTING TRUCKER Unavailable Unavailable Cal, L Carol Ann CASTING TRUCKER Unavailable Unavailable Cal, L Carol Ann CASTING TRUCKER Unavailable Unavailable Cal, L Carol Ann CASTING TRUCKER Unavailable Unavailable Siesta Acres, L Carol Ann CASTING TRUCKER Unavailable Unavailable Cal, L Carol Ann CASTING TRUCKER Unavailable Unavailable Siesta Acres, L Carol Ann CASTING TRUCKER Unavailable Unavailable Cal, L Carol Ann CASTING TRUCKER Unavailable Unavailable Cal, L Carol Ann CASTING TRUCKER Unavailable Unavailable Siesta Acres, L Carol Ann CASTING TRUCKER Unavailable Unavailable Cal, L Carol Ann CASTING TRUCKER Unavailable Unavailable Siesta Acres, L Carol Ann CASTING TRUCKER Unavailable Unavailable Cal, L Carol Ann CASTING TRUCKER Unavailable Unavailable Siesta Acres, L Carol Ann CASTING TRUCKER Unavailable Unavailable Cal, L Carol Ann CASTING TRUCKER Unavailable Unavailable Cal, L Carol Ann CASTING TRUCKER Unavailable Unavailable Cal, L Carol Ann CASTING TRUCKER Unavailable Unavailable Cal, L Carol Ann CASTING TRUCKER Unavailable Unavailable Siesta Acres, L Carol Ann CASTING TRUCKER Unavailable Unavailable Cal, L Carol Ann CASTING TRUCKER Unavailable Unavailable LEONARD, JOSE C BARBOUR Unavailable Unavailable LEONARD, JOSE C BARBOUR Unavailable Unavailable LEONARD, JOSE C BARBOUR Unavailable Unavailable LEONARD, JOSE C BARBOUR Unavailable Unavailable LEONARD, JOSE C BARBOUR Unavailable Unavailable LEONARD, JOSE C BARBOUR Unavailable Unavailable LEONARD, JOSE C BARBOUR Unavailable Unavailable LEONARD, JOSE C BARBOUR Unavailable Unavailable LEONARD, JOSE C BARBOUR Unavailable Unavailable LEONARD, JOSE C BARBOUR Unavailable Unavailable LEONARD, JOSE C BARBOUR Unavailable Unavailable LEONARD, JOSE C BARBOUR Unavailable Unavailable LEONARD, JOSE C BARBOUR Unavailable Unavailable LEONARD, JOSE C BARBOUR Unavailable Unavailable LEONARD, JOSE C BARBOUR Unavailable Unavailable LEONARD, JOSE C BARBOUR Unavailable Unavailable LEONARD, JOSE C BARBOUR Unavailable Unavailable LEONARD, JOSE C BARBOUR Unavailable Unavailable LEONADR, JOSE C BARBOUR Unavailable Unavailable LEONARD, JOSE C BARBOUR Unavailable Unavailable LEONARD, JOSE C BARBOUR Unavailable Unavailable LEONARD, JOSE C BARBOUR Unavailable Unavailable LEONARD, JOSE C BARBOUR Unavailable Unavailable LEONARD, JOSE C BARBOUR Unavailable Unavailable LEONARD, JOSE C BARBOUR Unavailable Unavailable LEONARD, JOSE C BARBOUR Unavailable Unavailable LEONARD, JOSE C BARBOUR Unavailable Unavailable LEONARD, JOSE C BARBOUR Unavailable Unavailable LEONARD, JOSE C BARBOUR Unavailable Unavailable LEONARD, JOSE C BARBOUR Unavailable Unavailable LEONARD, JOSE C BARBOUR Unavailable Unavailable LEONARD, JOSE C BARBOUR Unavailable Unavailable LEONARD, JOSE C BARBOUR Unavailable Unavailable LEONARD, JOSE C BARBOUR Unavailable Unavailable LEONARD, JOSE C BARBOUR Unavailable Unavailable LEONARD, JOSE C BARBOUR Unavailable Unavailable LEONARD, JOSE C BARBOUR Unavailable Unavailable LEONARD, JOSE C BARBOUR Unavailable Unavailable LEONARD, JOSE C BARBOUR Unavailable Unavailable LEONARD, JOSE C BARBOUR Unavailable Unavailable LEONARD, JOSE C BARBOUR Unavailable Unavailable LEONARD, JOSE C BARBOUR Unavailable Unavailable LEONARD, JOSE C BARBOUR Unavailable Unavailable LEONARD, JOSE C BARBOUR Unavailable Unavailable LEONARD, JOSE C BARBOUR Unavailable Unavailable LEONARD, JOSE C BARBOUR Unavailable Unavailable LEONARD, JOSE C BARBOUR Unavailable Unavailable LEONARD, JOSE C BARBOUR Unavailable Unavailable LEONARD, JOSE C BARBOUR Unavailable Unavailable LEONARD, JOSE C BARBOUR Unavailable Unavailable LEONARD, JOSE C BARBOUR Unavailable Unavailable LEONARD, JOSE C BARBOUR Unavailable Unavailable LEONARD, JOSE C BARBOUR Unavailable Unavailable LEONARD, JOSE C BARBOUR Unavailable Unavailable LEONARD, JOSE C BARBOUR Unavailable Unavailable Ludin, Reginah W Noemi MINES INSPECTOR-C Unavailable Unavailabl e Ludin, Reginah W Noemi MINES INSPECTOR-C Unavailable Unavailabl e Ludin, Reginah W Noemi MINES INSPECTOR-C Unavailable Unavailabl e Ludin, Reginah W Noemi MINES INSPECTOR-C Unavailable Unavailabl e Ludin, Reginah W Noemi MINES INSPECTOR-C Unavailable Unavailabl e Ludin, Reginah W Noemi MINES INSPECTOR-C Unavailable Unavailabl e Ludin, Reginaaudra W Noemi MINES INSPECTOR-C Unavailable Unavailabl e Ludin, Reginaaudra W Noemi MINES INSPECTOR-C Unavailable Unavailabl e Ludin, Reginaaudra W Noemi MINES INSPECTOR-C Unavailable Unavailabl e Ludin, Regnaila W Noemi MINES INSPECTOR-C Unavailable Unavailabl e Ludin, Reginaaudra W Noemi MINES INSPECTOR-C Unavailable Unavailabl e Ludin, Reginaaudra W Noemi MINES INSPECTOR-C Unavailable Unavailabl e Ludin, Reginaaudra W Noemi MINES INSPECTOR-C Unavailable Unavailabl e Ludin, Regina W Noemi MINES INSPECTOR-C Unavailable Unavailabl e Ludin, Elvira W Noemi MINES INSPECTOR-C Unavailable Unavailabl e Ludin, Elvira W Noemi MINES INSPECTOR-C Unavailable Unavailabl e Ludin, Elvira W Noemi MINES INSPECTOR-C Unavailable Unavailabl e Ludin, Elvira W Noemi MINES INSPECTOR-C Unavailable Unavailabl e Ludin, Elvira W Noemi MINES INSPECTOR-C Unavailable Unavailabl e Ludin, Regloyd W Noemi MINES INSPECTOR-C Unavailable Unavailabl e Ludin, Yessi W Noemi MINES INSPECTOR-C Unavailable Unavailabl e Ludin, Yessi W Noemi MINES INSPECTOR-C Unavailable Unavailabl e Ludin, Regnaila W Noemi MINES INSPECTOR-C Unavailable Unavailabl e Ludin, Regloyd W Noemi MINES INSPECTOR-C Unavailable Unavailabl e Ludin, Regina W Noemi MINES INSPECTOR-C Unavailable Unavailabl e Ludin, Regina W Noemi MINES INSPECTOR-C Unavailable Unavailabl e Ludin, Regina W Noemi MINES INSPECTOR-C Unavailable Unavailabl e Ludin, Regina W Noemi MINES INSPECTOR-C Unavailable Unavailabl e Ludin, Regina W Noemi MINES INSPECTOR-C Unavailable Unavailabl e Ludin, Regina W Noemi MINES INSPECTOR-C Unavailable Unavailabl e Ludin, Regina W Noemi MINES INSPECTOR-C Unavailable Unavailabl e Ludin, Regina W Noemi MINES INSPECTOR-C Unavailable Unavailabl e Charlebois, A Pauline RPA C Unavailable Unavailable Charlebois, A Pauline RPA C Unavailable Unavailable Charlebois, A Pauline RPA C Unavailable Unavailable Charlebois, A Pauline RPA C Unavailable Unavailable Charlebois, A Pauline RPA C Unavailable Unavailable Charlebois, A Pauline RPA C Unavailable Unavailable Charlebois, A Pauline RPA C Unavailable Unavailable Charlebois, A Pauline RPA C Unavailable Unavailable Charlebois, A Pauline RPA C Unavailable Unavailable Charlebois, A Pauline RPA C Unavailable Unavailable Charlebois, A Pauline RPA C Unavailable Unavailable Charlebois, A Pauline RPA C Unavailable Unavailable Charlebois, A Pauline RPA C Unavailable Unavailable Charlebois, A Pauline RPA C Unavailable Unavailable Charlebois, A Pauline RPA C Unavailable Unavailable Charlebois, A Pauline RPA C Unavailable Unavailable Charlebois, A Pauline RPA C Unavailable Unavailable Charlebois, A Pauline RPA C Unavailable Unavailable Charlebois, A Pauline RPA C Unavailable Unavailable Charlebois, A Pauline RPA C Unavailable Unavailable Charlebois, A Pauline RPA C Unavailable Unavailable Charlebois, A Pauline RPA C Unavailable Unavailable Charlebois, A Pauline RPA C Unavailable Unavailable Charlebois, A Pauline RPA C Unavailable Unavailable Charlebois, A Pauline RPA C Unavailable Unavailable Charlebois, A Pauline RPA C Unavailable Unavailable Charlebois, A Pauline RPA C Unavailable Unavailable Charlebois, A Pauline RPA C Unavailable Unavailable Charlebois, A Pauline RPA C Unavailable Unavailable Charlebois, A Pauline RPA C Unavailable Unavailable Charlebois, A Pauline RPA C Unavailable Unavailable Charlebois, A Pauline RPA C Unavailable Unavailable Charlebois, A Pauline RPA C Unavailable Unavailable LEONARDJOSE C MD Unavailable Unavailable LEONARD, JOSE C BARBOUR Unavailable Unavailable LEONARD, JOSE C BARBOUR Unavailable Unavailable LEONARD, JOSE C BARBOUR Unavailable Unavailable LEONARD, JOSE C BARBOUR Unavailable Unavailable LEONARD, JOSE C BARBOUR Unavailable Unavailable LEONARD, JOSE C BARBOUR Unavailable Unavailable LEONARD, JOSE C BARBOUR Unavailable Unavailable LEONARD, JOSE C BARBOUR Unavailable Unavailable LEONARD, JOSE C BARBOUR Unavailable Unavailable LEONARD, JOSE C BARBOUR Unavailable Unavailable LEONARD, JOSE C BARBOUR Unavailable Unavailable LEONARD, JOSE C BARBOUR Unavailable Unavailable LEONARD, WOODALL MD Unavailable Unavailable LEONARD, WOODALL MD Unavailable Unavailable LEONARD, WOODALL MD Unavailable Unavailable LEONARD, WOODALL MD Unavailable Unavailable LEONARD, WOODALL MD Unavailable Unavailable LEONARD, WOODALL MD Unavailable Unavailable LEONARD, WOODALL MD Unavailable Unavailable LEONARD, WOODALL MD Unavailable Unavailable LEONARD, WOODALL MD Unavailable Unavailable LEONARD, WOODALL MD Unavailable Unavailable LEONARD, WOODALL MD Unavailable Unavailable LEONARD, WOODALL MD Unavailable Unavailable LEONARD, WOODALL MD Unavailable Unavailable LEONARD, WOODALL MD Unavailable Unavailable LEONARD, WOODALL MD Unavailable Unavailable LEONARD, WOODALL MD Unavailable Unavailable LEONARD, WOODALL MD Unavailable Unavailable LEONARD, WOODALL MD Unavailable Unavailable LEONARD, WOODALL MD Unavailable Unavailable LEONARD, WOODALL MD Unavailable Unavailable LEONARD, WOODALL MD Unavailable Unavailable LEONARD, WOODALL MD Unavailable Unavailable LEONARD, WOODALL MD Unavailable Unavailable LEONARD, WOODALL MD Unavailable Unavailable LEONARD, WOODALL MD Unavailable Unavailable LEONARD, WOODALL MD Unavailable Unavailable LEONARD, WOODALL MD Unavailable Unavailable LEONARD, WOODALL MD Unavailable Unavailable LEONARD, WOODALL MD Unavailable Unavailable LEONARD, WOODALL MD Unavailable Unavailable LEONARD, WOODALL MD Unavailable Unavailable LEONARD, WOODALL MD Unavailable Unavailable LEONARD, WOODALL MD Unavailable Unavailable LEONARD, WOODALL MD Unavailable Unavailable LEONARD, WOODALL MD Unavailable Unavailable LEONARD, WOODALL MD Unavailable Unavailable LEONARD, WOODALL MD Unavailable Unavailable LEONARD, WOODALL MD Unavailable Unavailable LEONARD, WOODALL MD Unavailable Unavailable LEONARD, WOODALL MD Unavailable Unavailable LEONARD, WOODALL MD Unavailable Unavailable LEONARD, WOODALL MD Unavailable Unavailable Woodleaf, Romeo MD Unavailable Unavailable Woodleaf, Romeo MD Unavailable Unavailable [place], Romeo MD Unavailable Unavailable [place], Romeo MD Unavailable Unavailable [place], Romeo MD Unavailable Unavailable Woodleaf, Romeo MD Unavailable Unavailable Woodleaf, Romeo MD Unavailable Unavailable Woodleaf, Romeo MD Unavailable Unavailable Woodleaf, Romeo MD Unavailable Unavailable Woodleaf, Romeo MD Unavailable Unavailable Woodleaf, Romeo MD Unavailable Unavailable Woodleaf, Romeo MD Unavailable Unavailable Woodleaf, Romeo MD Unavailable Unavailable Woodleaf, Romeo MD Unavailable Unavailable Woodleaf, Romeo MD Unavailable Unavailable Woodleaf, Romeo MD Unavailable Unavailable Woodleaf, Romeo MD Unavailable Unavailable Woodleaf, Romeo MD Unavailable Unavailable Woodleaf, Romeo MD Unavailable Unavailable Woodleaf, Romeo MD Unavailable Unavailable Woodleaf, Romeo MD Unavailable Unavailable Woodleaf, Romeo MD Unavailable Unavailable [place], Romeo MD Unavailable Unavailable [place], Romeo MD Unavailable Unavailable [place], Romeo MD Unavailable Unavailable [place], Romeo MD Unavailable Unavailable [place], Romeo MD Unavailable Unavailable [place], Romeo MD Unavailable Unavailable Romeo Duke MD Unavailable Unavailable WoodleafRomeo lopes MD Unavailable Unavailable Re-disclosure Warning The records that you are about to access may contain information from federally-assisted alcohol or drug abuse programs. If such information is present, then the following federally mandated warning applies: This information has been disclosed to you from records protected by federal confidentiality rules (42 CFR part 2). The federal rules prohibit you from making any further disclosure of this information unless further disclosure is expressly permitted by the written consent of the person to whom it pertains or as otherwise permitted by 42 CFR part 2. A general authorization for the release of medical or other information is NOT sufficient for this purpose. The Federal rules restrict any use of the information to criminally investigate or prosecute any alcohol or drug abuse patient.The records that you are about to access may contain highly sensitive health information, the redisclosure of which is protected by Article 27-F of the [place] [facility] Public Health law. If you continue you may have access to information: Regarding HIV / AIDS; Provided by facilities licensed or operated by the [facility] Office of Mental Health; or Provided by the [facility] Office for People With Developmental Disabilities. If such information is present, then the following [facility] mandated warning applies: This information has been disclosed to you from confidential records which are protected by state law. State law prohibits you from making any further disclosure of this information without the specific written consent of the person to whom it pertains, or as otherwise permitted by law. Any unauthorized further disclosure in violation of state law may result in a fine or usp sentence or both. A general authorization for the release of medical or other information is NOT sufficient authorization for further disc losure. Encounters Encounter Providers Location Date Indications Data Source(s ) Outpatient Attender: Romeo Angulo/Leilani/Raymond/Reind l 07/21/2021 10:30:00 AM EDT [facility], [facility] Outpatient Attender: Romeo Angulo/Woodleaf/Raymond/Reind l 06/17/2021 11:30:00 AM EDT [facility], ) Outpatient Attender: Pauline Angulo/Woodleaf/A ngel/Reindl 05/27/2021 10:15:00 AM EDT [facility] ([facility]) Outpatient Attender: Carol Ann Mccall RNPReferrer: Preston CHAVEZ EMERGENCY ROOM-LAB 04/21/2021 09:49:00 AM EDT - 04/21/2021 09:49:00 AM [facility] Outpatient Attender: Carol Ann CHAVEZ 04/21/2021 08:57:00 AM [facility] Outpatient Attender: Carol Ann Mccall RNPReferrer: Preston CHAVEZ EMERGENCY ROOM-LAB 04/03/2021 08:30:00 AM EDT - 04/03/2021 08:30:00 AM [facility] Outpatient Attender: Carol Ann CHAVEZ 08/30/2020 09:57:00 AM [facility] Outpatient Attender: Carol Ann Mccall RNPReferrer: Preston CHAVEZ EMERGENCY ROOM-LAB 08/16/2020 08:51:00 AM EDT - 08/16/2020 08:51:00 AM [facility] Outpatient Attender: JOSE C VALLE MD [email or web address] 07/09/2020 06:05:21 PM EDT [facility] Outpatient Attender: JOSE C VALLE MD 07/09/2020 03:34:00 PM [facility] Outpatient Attender: Noemi DELONG-CReferrer: Cassy CHAVEZ EMERGENCY ROOM-LAB REF 06/01/2020 09:53:00 AM EDT - 06/01/2020 09:53:00 AM [facility] Outpatient Attender: Noemi DELONG-Jeff 05/29/2020 10:11:0 0 AM [facility] Outpatient Attender: Carol Ann CHAVEZ 05/17/2020 10:27:00 AM [facility] Medications Medication Brand Name Start Date Product Form Dose Route Admi nistrative Instructions Pharmacy Instructions Status Indications Reaction Description Data Source(s) Famotidine 40 MG Oral Tablet Famotidine 08/20/2021 12:00:00 AM EDT ORAL active [facility] POLYETHYLENE GLYCOL 3350 142 MG/ML Oral Solution [Miralax] M iralax 07/10/2021 12:00:00 AM EDT completed [facility] ([facility] [place], ) POLYETHYLENE GLYCOL 3350 142 MG/ML Oral Solution [Miralax] M iralax 05/27/2021 12:00:00 AM EDT ORAL active [facility] ([facility]) Suprep Bowel Prep Kit Suprep Bowel Prep Kit 05/27/2021 12:00:00 AM EDT completed [facility] ([facility], ) pantoprazole 40 MG Delayed Release Oral Tablet Pantoprazole Sodium 05/27/2021 12:00:00 AM EDT ORAL active [facility] ([facility] [place], ) Bisacodyl 5 MG Delayed Release Oral Tablet [Dulcolax] Dulcol ax 05/27/2021 12:00:00 AM EDT ORAL completed [facility] ([facility] [place], ) Insurance Providers Payer name Policy type / Coverage type Policy ID Covered republican ID Covered republican's relationship to edmondson Policy Edmondson Plan Information COMMERCIAL GENERIC UNAVAILABLE Kath UNAVAILABLE COMMERCIAL GENERIC [id number] Kath [id number] [facility] [id number] SPO [id number] [facility] [id number] SPO [id number] [facility] [id number] [facility] [id number] SP U [id number] [facility] [id number] SPO [id number] OTHER INS [id number] SPO [id number] [facility] [id number] SPO [id number] [employer] [id number] SP U [id number] [employer] INS CO [id number] HUS [id number] [facility] [id number] HU2 [id number] ANSI-Commercial [id number] [facility] [id number] Problems, Conditions, and Diagnoses Code Display Name Description Problem Type Effective Dates Data Source(s) R53.83 Other fatigue OTHER FATIGUE Diagnosis 04/21/2021 09:49:00 AM [facility] M25.50 Pain in unspecified joint PAIN IN UNSPECIFIED JOINT Di agnosis 04/21/2021 09:49:00 AM [facility] Z71.2 Person consulting for explanation of exa mination or test findings PERSON CONSULTING FOR EXPLANATION OF EXAM OR TEST Diagnosis 04/21/2021 08:57: 00 AM [facility] Z12.11 Encounter for screening for malignant ne oplasm of colon ENCOUNTER FOR SCREENING FOR MALIGNANT NEOPLASM OF Diagnosis 04/21/2021 08:57:00 AM [facility] E66.3 Overweight OVERWEIGHT Diagnosis 04/21/2021 08:57:00 AM [facility] R63.4 Abnormal weight loss ABNORMAL WEIGHT LOSS Diagnosis 04/21/2021 08:57:00 AM [facility] F41.9 Anxiety disorder, unspecified ANXIETY DISORDER, UNSPEC IFIED Diagnosis 04/21/2021 08:57:00 AM [facility] R10.13 Epigastric pain EPIGASTRIC PAIN Diagnosis 04/21/2021 08:5 7:00 AM [facility] G47.30 Sleep apnea, unspecified SLEEP APNEA, UNSPECIFIED Diag nosis 04/21/2021 08:57:00 AM [facility] E78.00 PURE HYPERCHOLESTEROLEMIA, UNSPECIFIED P URE HYPERCHOLESTEROLEMIA, UNSPECIFIED Diagnosis 04/21/2021 08:57:00 AM [facility] I47.1 Supraventricular tachycardia SUPRAVENTRICULAR TACHYCAR LILLIANA Diagnosis 04/21/2021 08:57:00 AM [facility] I10 Essential (primary) hypertension ESSENTIAL (PRIMARY) H YPERTENSION Diagnosis 04/21/2021 08:57:00 AM [facility] Z00.00 Encounter for general adult medical examination without abnormal findings ENCNTR FOR GENERAL ADULT MEDICAL EXAM W/O ABNORMAL FINDINGS Diagnosis 04/21/2021 08:57:00 AM [facility] Z76.0 Encounter for issue of repeat prescripti on ENCOUNTER FOR ISSUE OF REPEAT PRESCRIPTION Diagnosis 08/30/2020 09:57:00 AM [facility] Z71.89 Other specified counseling OTHER SPECIFIED COUNSELING Diagnosis 08/30/2020 09:57:00 AM [facility] Z23 Encounter for immunization ENCOUNTER FOR IMMUNIZATION Diagnosis 08/30/2020 09:57:00 AM [facility] E66.9 Obesity, unspecified OBESITY, UNSPECIFIED Diagnosis 08/30/2020 09:57:00 AM [facility] R82.90 Unspecified abnormal findings in urine U NSPECIFIED ABNORMAL FINDINGS IN URINE Diagnosis 08/30/2020 09:57:00 AM [facility] F41.9 Anxiety disorder, unspecified Anxiety disorder, unspec ified Diagnosis 07/09/2020 06:05:21 PM EDT [facility] M19.90 Unspecified osteoarthritis, unspecified site Unspecified osteoarthritis, unspecified Diagnosis 07/09/2020 06:05:21 PM EDT [facility] R00.2 Palpitations Palpitations Diagnosis [facility] Essential (primary) hypertension Essential (primary) h ypertension Diagnosis 07/09/2020 06:05:21 PM EDT [facility] I47.1 Supraventricular tachycardia Supraventricular tachycar lilliana Diagnosis 07/09/2020 06:05:21 PM EDT [facility] M19.90 Unspecified osteoarthritis, unspecified site UNSPECIFIED OSTEOARTHRITIS, UNSPECIFIED SITE Diagnosis 07/09/2020 03:34:00 PM [facility] R00.2 Palpitations PALPITATIONS Diagnosis 07/09/2020 03:34:00 P M [facility] [id number] Essential hypertension Essential hypertension Problem 05/27/2021 12:00:00 AM EDT [facility] ([facility] [place], ) Surgeries/Procedures Procedure Description Date Indications Data Source(s) Endoscopy Upper GI Biopsy 08/07/2021 12:00:00 AM EDT [facility] ([facility] [place], ) Colonoscopy Flexible Proximal To Splenic Flexure Diagnostic W/Or 08/07/2021 12:00:00 AM EDT [facility] ([facility], ) OFFICE OUTPATIENT VISIT 10 MINUTES 07/21/2021 12:00:00 AM EDT [facility] ([facility] [place], ) Fine Needle Aspiration Biopsy Inlcd Ultrasound Guidance 06/17/2021 12:00:00 AM EDT [facility] ([facility], ) LARYNGOSCOPY FLEXIBLE FIBEROPTIC DIAGNOSTIC 06/17/2021 12:00:00 AM EDT [facility] ([facility]) OFFICE OUTPATIENT NEW 30 MINUTES 06/17/2021 12:00:00 A M EDT [facility] ([facility]) OFFICE OUTPATIENT NEW 45 MINUTES 05/27/2021 12:00:00 A M EDT [facility] ([facility]) Results ID Date Data Source [id number] 08/07/2021 01:05:00 PM EDT [facility] ([facility]) Name Value Range Interpretation Code Description Data Nina rce(s) Supporting Document(s) Surgical pathology study Laboratory test result [facility] ([facility]) FINAL DIAGNOSIS A - Gastric biopsy: Gastric mucosa with mild reactive changes. No significant inflammatory activity or evidence for H. pylori is noted. B - Lower esophageal biopsy: Squamocolumnar junction mucosa with mild acute and chronic inflammation. No intestinal metaplasia is identified. 08/11/2021 - 1106 CLINICAL DIAGNOSIS Epigastric pain, nausea, screening, gastritis and esophagitis 08/08/2021 - 1248 GROSS DIAGNOSIS A - Received in formalin labeled "gastric biopsy" is a 0.2 x 0.2 x 0.1 cm. aggregate of two mucosal fragments. All in one. B - Received in formalin labeled "lower esophageal biopsy" is a 0.3 x 0.2 x 0.2 cm. portion of mucosa. All in one. - 08/08/2021 - 1248 Signed Collins Hwang MD 08/11/2021 1218 ID Date Data Source [id number] 08/02/2021 11:00:00 AM EDT [facility] Name Value Range Interpretation Code Description Data Nina rce(s) Supporting Document(s) SARS-CoV-2 (COVID-19) RNA [Presence] in Respiratory specimen by HIRAL with probe detection Not Detected [facility] This lab was ordered by [facility] and reported by [email or web address]. ID Date Data Source [id number] 06/17/2021 01:20:00 PM EDT [facility] ([facility]) Name Value Range Interpretation Code Description Data Nina rce(s) Supporting Document(s) Microscopic observation [Identifier] in Unspecified specimen by Non- gynecological cytology method Laboratory test result [facility] ([facility] [place], ) SPECIMEN: FNA Right neck mass Slides and Cytolyt (clear) received SPECIMEN ADEQUACY: Satisfactory for evaluation CATEGORIZATION: No Malignancy identified DESCRIPTIONS: Specimen consists mainly of scattered neutrophils and lymphocytes. COMMENTS: 06/18/2021 - [address](ASCP) 06/18/2021 0728 (Prelim) Signed HUGO MONCADA MD 06/18/2021 0842 ID Date Data Source [id number] 04/22/2021 10:10:00 AM EDT [facility] Name Value Range Interpretation Code Description Data Nina rce(s) Supporting Document(s) ALEXA DIRECT Negative Negative [facility] Performed at: [place] [id number] Director: Susan Elmore MD, Phone: [phone] ID Date Data Source [id number] 04/22/2021 02:15:00 PM EDT [facility] Name Value Range Interpretation Code Description Data Nina rce(s) Supporting Document(s) LYME IGG/IGM AB <0.91 ISR 0.00-0.90 [facility] Negative <0.91 Equivocal 0.91 - 1.09 Positive > 1.09Performed at: [facility] [address] [id number] Director: Susan Elmore MD, Phone: [phone] ID Date Data Source [id number] 04/22/2021 10:05:00 AM EDT [facility] Name Value Range Interpretation Code Description Data Nina rce(s) Supporting Document(s) ALEXA Direct Negative Negative [facility] ID Date Data Source [id number] 04/22/2021 02:05:00 PM EDT [facility] Name Value Range Interpretation Code Description Data Nina rce(s) Supporting Document(s) Lyme IgG/IgM Ab 0.00-0.90 [facility] Negative <0.91 Equivocal 0.91 - 1.09 Positive >1.09 ID Date Data Source [id number] 04/21/2021 01:18:00 PM EDT [facility] Name Value Range Interpretation Code Description Data Nina rce(s) Supporting Document(s) FREE T4 0.7 ng/dL 0.76-1.46 L [facility] ID Date Data Source [id number] 04/21/2021 01:18:00 PM EDT [facility] Name Value Range Interpretation Code Description Data Nina rce(s) Supporting Document(s) TSH 2.218 uIU/mL 0.360-3.740 [facility] ID Date Data Source [id number] 04/21/2021 12:33:00 PM EDT [facility] Name Value Range Interpretation Code Description Data Nina rce(s) Supporting Document(s) RHEUMATOID FACTOR SCREEN NEGATIVE NEGATIVE [facility] ID Date Data Source [id number] 04/21/2021 11:11:00 AM EDT [facility] l Name Value Range Interpretation Code Description Data Nina rce(s) Supporting Document(s) ERYTHROCYTE SEDIMENTATION RATE 42 mm/hr 0-30 H [facility] ID Date Data Source [id number] 04/21/2021 10:31:00 AM T [facility] Name Value Range Interpretation Code Description Data Nina rce(s) Supporting Document(s) WHITE BLOOD COUNT 6.8 K/mm3 4.0-10.0 [facility] al RED BLOOD COUNT 4.43 M/mm3 4.00-5.50 [facility] HEMOGLOBIN 13.0 gm/dL 12.0-16.0 [facility] HEMATOCRIT 39.1 % 36.0-48.8 [facility] MEAN CELL VOLUME 88.3 fl 80-96 [facility] MEAN CORPUSCULAR HEMOGLOBIN 29.3 pg 27.0-31.0 [facility] MEAN CORPUSCULAR HGB CONC 33.2 g/dl 32.0-36.0 [facility] RED CELL DISTRIBUTION WIDTH 12.3 % 10.0-14.5 [facility] PLATELET COUNT 215 K/mm3 172-450 [facility] MEAN PLATELET VOLUME 8.4 fl 9.0-13.0 L [facility] pital GRAN % 68.1 % 50-80.0 [facility] IG% 0.1 % 0.0-0.2 [facility] LYMPH % 21.6 % 25.0-50.0 L [facility] MONO % 7.0 % 2.0-10.0 [facility] EOS % 2.9 % 0-5.0 [facility] BASO % 0.3 % 0.0-2.0 [facility] GRAN # 4.6 K/mm3 2.0-8.00 [facility] IG# 0.0 K/mm3 0.0-0.2 [facility] LYMPH # 1.5 K/mm3 1.0-5.0 [facility] MONO # 0.5 K/mm3 0.10-1.20 [facility] EOS # 0.2 K/mm3 0.0-0.5 [facility] BASO # 0.0 K/mm3 0.0-0.2 [facility] ID Date Data Source [id number] 04/21/2021 10:51:00 AM EDT [facility] l Name Value Range Interpretation Code Description Data Nina rce(s) Supporting Document(s) C REACTIVE PROTEIN 7.8 mg/L 0.0-3.0 [facility] jsawinder ID Date Data Source [id number] 04/03/2021 09:24:00 AM EDT [facility] l Name Value Range Interpretation Code Description Data Nina rce(s) Supporting Document(s) CHOLESTEROL 177 mg/dL 0-200 [facility] TRIGLYCERIDES 219 mg/dL 0-150 H [facility] LDL CHOLESTEROL 97 mg/dL 0-100 [facility] HDL CHOLESTEROL 36 mg/dL 40-60 L [facility] CHOL/HDL RATIO 4.9 0.0-5.0 [facility] ID Date Data Source [id number] 04/03/2021 09:24:00 AM EDT [facility] l Name Value Range Interpretation Code Description Data Nina rce(s) Supporting Document(s) GLUCOSE 99 mg/dL 74-106 [facility] BLOOD UREA NITROGEN 12 mg/dL 7-18 [facility] ital CREATININE 0.94 mg/dL 0.6-1.0 [facility] SODIUM 143 mmol/L 136-145 [facility] POTASSIUM 4.2 mmol/L 3.5-5.1 [facility] CHLORIDE 104 mmol/L 98-107 [facility] CO2 28 mmol/L 21-32 [facility] CALCIUM 9.2 mg/dL 8.5-10.1 [facility] ANION GAP 11.0 mmol/L 5-12 [facility] GLOMERULAR FILTRATION RATE 60 mL/min D[place] GFR IS CALCULATED IN mL/min/1.73m2 BERTIN L FUNCTION: >90MILDLY DECREASED: 60-89MILDY TO MODERATELY DECREASED: 45-59 MODERATELY TO SEVERELY DECREASED: 30-44SEVERELY DECREASED: 15-29RENAL FAILURE: <15 AST 14 U/L 15-37 [facility] ALT 27 U/L 12-78 [facility] ALKALINE PHOSPHATASE 93 U/L 46-116 [facility] pital TOTAL BILIRUBIN 0.6 mg/dL 0.2-1.0 [facility] TOTAL PROTEIN 7.2 g/dl 6.4-8.2 [facility] ALBUMIN 4.1 gm/dL 3.4-5.0 [facility] ID Date Data Source [id number] 08/16/2020 10:17:00 AM EDT [facility] [phone] Name Value Range Interpretation Code Description Data Nina rce(s) Supporting Document(s) CHOLESTEROL 203 mg/dL 0-200 H [facility] TRIGLYCERIDES 302 mg/dL 0-150 *H [facility] LDL CHOLESTEROL 111 mg/dL 0-100 H [facility] HDL CHOLESTEROL 32 mg/dL 40-60 L [facility] CHOL/HDL RATIO 6.3 0.0-5.0 H [facility] ID Date Data Source [id number] 08/16/2020 10:17:00 AM EDT [facility] [phone] Name Value Range Interpretation Code Description Data Nina rce(s) Supporting Document(s) GLUCOSE 92 mg/dL 74-106 [facility] BLOOD UREA NITROGEN 16 mg/dL 7-18 [facility] ital CREATININE 0.9 mg/dL 0.6-1.0 [facility] SODIUM 141 mmol/L 136-145 [facility] POTASSIUM 4.4 mmol/L 3.5-5.1 [facility] CHLORIDE 103 mmol/L 98-107 [facility] CO2 27 mmol/L 21-32 [facility] CALCIUM 9.0 mg/dL 8.5-10.1 [facility] ANION GAP 11.0 mmol/L 5-12 [facility] GLOMERULAR FILTRATION RATE 64 mL/min [facility] GFR IS CALCULATED IN mL/min/1.73m2 BERTIN L FUNCTION: >90MILDLY DECREASED: 60-89MILDY TO MODERATELY DECREASED: 45-59 MODERATELY TO SEVERELY DECREASED: 30-44SEVERELY DECREASED: 15-29RENAL FAILURE: <15 AST 22 U/L 15-37 [facility] ALT 31 U/L 12-78 [facility] ALKALINE PHOSPHATASE 87 U/L 46-116 [facility] pital TOTAL BILIRUBIN 0.4 mg/dL 0.2-1.0 [facility] TOTAL PROTEIN 7.3 g/dl 6.4-8.2 [facility] ALBUMIN 4.4 gm/dL 3.4-5.0 [facility] ID Date Data Source [id number] 08/16/2020 09:46:00 AM [facility] [phone] Name Value Range Interpretation Code Description Data Nina rce(s) Supporting Document(s) FREE T4 0.71 ng/dL 0.76-1.46 [facility] ID Date Data Source [id number] 08/16/2020 09:46:00 AM [facility] [phone] Name Value Range Interpretation Code Description Data Nina rce(s) Supporting Document(s) TSH 2.61 uIU/mL 0.36-3.74 [facility] ID Date Data Source [id number] 08/16/2020 09:46:00 AM [facility] [phone] Name Value Range Interpretation Code Description Data Nina rce(s) Supporting Document(s) ESTIMATED AVERAGE GLUCOSE 105.4 mg/dL [facility] ID Date Data Source [id number] 08/16/2020 09:46:00 AM [facility] [phone] Name Value Range Interpretation Code Description Data Nina rce(s) Supporting Document(s) HGBA1C 5.3 % 3.8-5.6 [facility] Diabetic > or = to 6.5%Prediabetes 5.7-6 .4%Normal <5.7 ID Date Data Source [id number] 08/16/2020 09:11:00 AM [facility] [phone] Name Value Range Interpretation Code Description Data Nina rce(s) Supporting Document(s) WHITE BLOOD COUNT 6.6 K/mm3 4.0-10.0 [facility] al RED BLOOD COUNT 4.12 M/mm3 4.00-5.50 [facility] HEMOGLOBIN 12.3 gm/dL 12.0-16.0 [facility] HEMATOCRIT 36.8 % 36.0-48.8 [facility] MEAN CELL VOLUME 89.3 fl 80-96 [facility] MEAN CORPUSCULAR HEMOGLOBIN 29.9 pg 27.0-31.0 [facility] MEAN CORPUSCULAR HGB CONC 33.4 g/dl 32.0-36.0 [facility] RED CELL DISTRIBUTION WIDTH 12.4 % 10.0-14.5 [facility] PLATELET COUNT 250 K/mm3 172-450 [facility] MEAN PLATELET VOLUME 8.5 fl 9.0-13.0 L [facility] pital GRAN % 64.2 % 50-80.0 [facility] IG% 0.3 % 0.0-0.2 H [facility] LYMPH % 24.8 % 25.0-50.0 L [facility] MONO % 6.3 % 2.0-10.0 [facility] EOS % 4.1 % 0-5.0 [facility] BASO % 0.3 % 0.0-2.0 [facility] GRAN # 4.3 K/mm3 2.0-8.00 [facility] IG# 0.0 K/mm3 0.0-0.2 [facility] LYMPH # 1.6 K/mm3 1.0-5.0 [facility] MONO # 0.4 K/mm3 0.10-1.20 [facility] EOS # 0.3 K/mm3 0.0-0.5 [facility] BASO # 0.0 K/mm3 0.0-0.2 [facility] Procedure Social History No Information Vital Signs ID Date Data Source UNK Name Value Range Interpretation Code Description Data Source(s) Body weight 87.998 kg 87.998 kg [facility] ([facility]) Body mass index (BMI) [Ratio] 28.6 kg/m2 28.6 k g/m2 [facility] ([facility]) [place] body weight 145 [lb_av] 145 [lb_av] JORIEN T ([facility]) Systolic blood pressure 130 mm[Hg] 130 mm[Hg] M EDHERMELINDO ([facility]) Diastolic blood pressure 72 mm[Hg] 72 mm[Hg] [facility] ([facility]) Body height 69 [in_i] 69 [in_i] [facility] ([facility]) 5'9" Body weight 194.00 [lb_av] 194.00 [lb_av] MEDEN T ([facility]) Body surface area Derived from formula 2.04 m2 2.04 m2 [facility] ([facility]) Body height 69 [in_i] 69 [in_i] [facility] ([facility]) 5'9" Body weight 194.00 [lb_av] 194.00 [lb_av] MED[facility] T ([facility]) Body mass index (BMI) [Ratio] 28.6 kg/m2 28.6 k g[facility] [place] body weight 145 [lb_av] 145 [lb_av] MED[facility] T ([facility]) Body weight 87.998 kg 87.998 kg [facility] ([facility]) Body surface area Derived from formula 2.04 m2 2.04 m2 [facility] ([facility]) Body weight 86.184 kg 86.184 kg [facility] ([facility]) Body height 69 [in_i] 69 [in_i] [facility] ([facility]) 5'9" Body weight 190.00 [lb_av] 190.00 [lb_av] MEDEN T ([facility]) Body mass index (BMI) [Ratio] 28.1 kg/m2 28.1 k g/m2 [facility] ([facility] [place] body weight 145 [lb_av] 145 [lb_av] MEDEN T ([facility]) Body surface area Derived from formula 2.02 m2 2.02 m2 [facility] ([facility]) Body weight 199.00 [lb_av] 199.00 [lb_av] MED[facility] T ([facility]) Body mass index (BMI) [Ratio] 29.4 kg/m2 29.4 k g/m2 [facility] ([facility]) [place] body weight 145 [lb_av] 145 [lb_av] [facility] T ([facility]) Body weight 90.266 kg 90.266 kg [facility] ([facility]) Body surface area Derived from formula 2.06 m2 2.06 m2 [facility] ([facility] [place], ) Systolic blood pressure 124 mm[Hg] 124 mm[Hg] M PRATIMA ([facility] [place], ) Diastolic blood pressure 82 mm[Hg] 82 mm[Hg] ZAYNAB ([facility] [place], ) Body height 69 [in_i] 69 [in_i] [facility] ([facility], ) 5'9"
[2021-08-21] MEDS ORDERED: BACITRACIN OINTMENT 30GM TUBE As Ordered ONE (10:23)
[2021-08-21] MEDS ORDERED: LIDOCAINE W/EPINEPHRINE 1% 20ML VIAL As Ordered ONE (10:23)
[2021-08-21] MEDS ORDERED: ROCURONIUM BROMIDE 50 MG/5 ML VIAL As Ordered ONE (10:51)
[2021-08-21] MEDS ORDERED: fentaNYL 100 MCG/2 ML INJECTION (J3010) As Ordered ONE ×2 (10:51→12:08)
[2021-08-21] MEDS ORDERED: propofoL 200 MG/20 ML VIAL As Ordered ONE (10:51)
[2021-08-21] MEDS ORDERED: dexameTHASONE 4 MG/ML 1ML VIAL (J1100 PER 1MG) As Ordered ONE (10:51)
[2021-08-21] MEDS ORDERED: ONDANSETRON 4MG/2ML VIAL As Ordered ONE (10:51)
[2021-08-21] MEDS ORDERED: MIDAZOLAM INJ 2MG/2ML VIAL (J2250 PER 1MG) As Ordered ONE (10:51)
[2021-08-21] MEDS ORDERED: LIDOCAINE 2% 100MG/5ML SDV (FOR ANES.) As Ordered ONE (10:51)
[2021-08-21] MEDS ORDERED: ePHEDrine SULFATE 25 MG/5 ML(5MG/ML) SYRINGE As Ordered ONE (11:02)
[2021-08-21] MEDS ORDERED: SUGAMMADEX SODIUM 500 MG/5 ML VIAL (BRIDION) As Ordered ONE (11:35)
[2021-08-21] MEDS ORDERED: KETOROLAC 60MG 2ML VIAL As Ordered ONE (11:37)
[2021-08-21] MEDS ORDERED: LR 1,000 ML IV SCH ×2 (12:25→12:30)
[2021-08-21] MEDS ORDERED: fentaNYL 100 MCG/2 ML INJECTION (J3010) IV PRN (12:25)
[2021-08-21] MEDS ORDERED: oxyCODONE 5MG TAB PO PRN (12:25)
[2021-08-21] MEDS ORDERED: ONDANSETRON 4MG/2ML VIAL IV PRN (12:25)
[2021-08-21] MEDS ORDERED: HYDROMORPHONE HCL 0.5 MG/ 0.5 ML SYRINGE (J1170 PER 1) IV PRN (12:25)
[2021-08-21 12:56] VITALS: BP 137/80
--- NOTE | 2021-08-21 16:41 | RO ---
OPERATIVE NOTE DATE OF OPERATION: 08/21/2021 PREOPERATIVE DIAGNOSIS: Mass right neck. POSTOPERATIVE DIAGNOSIS: Mass right neck. PROCEDURE: Excision, mass right neck. SURGEON: Romeo Duke MD MILIT[employer] COMMUNICATIONS SPECIALIST: ZOHREH Ramirez helped me during the procedure, held retractors and did some of the cutting and cautery. ANESTHESIA: General. DESCRIPTION OF PROCEDURE: Under general anesthesia with the patient intubated, the patient draped in the usual manner. An incision was made over the mass, dividing skin and subcutaneous tissues. The mass was stuck down to everything. First I divided the platysma muscle which it was stuck to and then I dissected around it. I actually had two portions that were superficial and deep. I dissected around the posterior aspect first, it from the sternocleidomastoid muscle and then I went inferiorly and superiorly. It was stuck to the retromandibular vein medially so I left that to last. I dissected around it using the cautery. Vessels seen were cauterized. I did manipulate larger vessels out of the way. At the end I clamped and divided it from the retromandibular vein. I tied that off with Vicryl. There was minimal bleeding, less than 5 mL estimated. I irrigated the wound to make sure there was no bleeding. I did a bit of cautery, put in some Surgicel and then closed the wound with 4-0 Vicryl, monocryl, and then 5-0 nylon. The patient tolerated the procedure well and then was extubated and transferred to the recovery room in excellent condition.
--- NOTE | 2021-08-21 19:18 | ECGEPIP ---
[facility] Test Date: 2021-08-21 Pat Name: KRUNAL MENDOZA Department: Room: - Gender: Female [employer] Department: MEGAN : 1960 Requested By: Abisai Beckwith Order Number: [id number] Reading MD: Boom Stewart Measurements Intervals [place] Rate: 53 P: 48 [place]: 172 QRS: -10 QRSD: 90 T: 49 QT: 484 QTc: 454 Interpretive Statements Sinus bradycardia Comparison tracing not on file Electronically Signed on 08-21-2021 19:18:39 EDT by Boom Stewart
== END 2021-08-21 13:16 | disposition home or self-care (01) ==
LOC: M SDC 08:51
PROVIDERS: ATTEND Otolaryngology
DX: L04.0 Acute lymphadenitis of face, head and neck (principal); L92.9 Granulomatous disorder of the skin and subcutaneous tissue, unspecified; I47.1 Supraventricular tachycardia; I10 Essential (primary) hypertension; K21.9 Gastro-esophageal reflux disease without esophagitis; R10.9 Unspecified abdominal pain; R11.0 Nausea; M19.90 Unspecified osteoarthritis, unspecified site; M54.9 Dorsalgia, unspecified; G47.30 Sleep apnea, unspecified; F41.9 Anxiety disorder, unspecified; Z79.899 Other long term (current) drug therapy
CPT/HCPCS: 21555; 88307; 88312; 88313; 93005; J1100; J1885; J2250; J2405; J3010

== ENCOUNTER → 2024-08-19 | Outpatient (CLI) | payer MEDICARE ==
[~2024-08-19] MED LIST changes: -LIDOCAINE 1% MDV 20ML VIAL SQ PRN; -LR 1,000 ML IV ONE
[2024-08-19 12:28] LABS: BLOOD UREA NITROGEN 13 MG/DL (9-23); CREATININE FOR GFR 0.69 MG/DL (0.55-1.30); GLOMERULAR FILTRATION RATE > 60.0 (>45)
== END ==
LOC: M LAB 11:33
PROVIDERS: ATTEND Nurse Practitioner Adult Health
DX: R93.5 Abnormal findings on diagnostic imaging of other abdominal regions, including retroperitoneum (principal)

== ENCOUNTER → 2024-08-23 | Outpatient (CLI) | payer MEDICARE ==
[~2024-08-23] MED LIST changes: +GASTROGRAFIN SOLUTION 30ML As Ordered ONE; +ISOVUE-370 76% 100ML VIAL As Ordered ONE
== END ==
LOC: M RAD 14:31
PROVIDERS: ATTEND Nurse Practitioner Family
DX: R93.5 Abnormal findings on diagnostic imaging of other abdominal regions, including retroperitoneum (principal); K76.89 Other specified diseases of liver; Z90.49 Acquired absence of other specified parts of digestive tract
CPT/HCPCS: 74178; Q9963; Q9967